=== PATIENT | male | born 1975 ===

== ENCOUNTER 2017-10-01 23:24 | Emergency (ER) | payer SELFPAY ==
[2017-10-02 00:09] VITALS: RESP 16; TEMP 98.3; O2SAT 100
[2017-10-02 01:49] VITALS: BP 144/83; PULSE 66
[2017-10-02] MEDS ORDERED: Tdap Vaccine 0.5 ml Vial (10-64 yrs) IM ONE ×2 (02:09→02:40)
--- NOTE | 2017-10-02 02:13 | ED PDOC ---
HPI: Wound Care - HPI Time Seen by Provider: 10/02/17 01:27 Chief Complaint (Nursing): Abnormal Skin Integrity Chief Complaint (Provider): left forearm laceration History Per: Patient History Of Present Illness: 42 y/o male presents with laceration to left forearm sustained at 13:00 yesterday. Patient states he was cutting grass with a machete and accidentally cut his arm. Denies numbness/weakness left upper extremity, limitation of movement. Tetanus not up to date. Onset/Duration Of Symptoms: Hrs (>12) Past Medical History Reviewed: Historical Data, Nursing Documentation, Vital Signs Vital Signs: Last Vital Signs Temp 98.3 F 10/02/17 00:06 Pulse 66 10/02/17 01:48 Resp 16 10/02/17 01:48 BP 144/83 10/02/17 01:48 Pulse Ox 100 10/02/17 01:48 - Medical History PMH: No Chronic Diseases - Surgical History Surgical History: No Surg Hx - Family History Family History: States: No Known Family Hx - Allergies Allergies/Adverse Reactions: Allergies Allergy/AdvReac Type Severity Reaction Status Date / Time No Known Allergies Allergy Verified 10/02/17 00:06 Review of Systems ROS Statement: Except As Marked, All Systems Reviewed And Found Negative Skin: Positive for: Other (left forearm laceration) Physical Exam - Reviewed Nursing Documentation Reviewed: Yes Vital Signs Reviewed: Yes - Physical Exam Appears: Positive for: Well, Non-toxic, No Acute Distress Head Exam: Positive for: ATRAUMATIC, NORMAL INSPECTION, NORMOCEPHALIC Skin: Positive for: Normal Color Extremity: Positive for: Normal ROM, Other (2cm superficial laceration volar left forearm; no tendon exposure, or active bleeding noted. Distal NV, motor intact) Neurologic/Psych: Positive for: Alert, Oriented. Negative for: Motor/Sensory Deficits - ECG O2 Sat by Pulse Oximetry: 100 Procedure: Wound Repair - Time Performed Time Performed: 02:30 - Time Out Time Out: Side verified, Site verified, Patient ID confirmed - Consent Obtained Consent obtained: Verbal - Performed by Performed by: Mid-level Provider - Indications Indication(s):: Laceration - Location Location:: Left, Forearm Dimensions Length cm: 2cm Dimensions width cm: 1cm Depth:: Epidermis - Debris Debris:: None - Irrigated Irrigated with ml of normal saline: 250mL - Wound repair method Isabel:: Steri-strips - Muscle repiar layer closed with Muscle repair layer closed with:: Dressing applied, Tetanus ordered - Patient tolerated procedure Patient Tolerated Procedure:: Well Medical Decision Making Medical Decision Making: Patient educated on wound care, discharged with instructions to follow up PMD 2- 3 days. Return precautions given. Disposition - Clinical Impression Clinical Impression: Forearm laceration - Patient ED Disposition Is Patient to be Admitted: No Counseled Patient/Family Regarding: Diagnosis, Need For Followup - Disposition Referrals: [facility] [Outside] Disposition: Routine/Home Disposition Time: 02:46 Condition: STABLE Instructions: Laceration Repair Print Language: BELIZEAN
== END 2017-10-02 04:30 | disposition home or self-care (01) ==
LOC: H.ER 23:24
DX: S51.812A Laceration without foreign body of left forearm, initial encounter (principal); W26.8XXA Contact with other sharp object(s), not elsewhere classified, initial encounter; Y92.89 Other specified places as the place of occurrence of the external cause